=== PATIENT | male | born 1955 | race Two or more races ===

== ENCOUNTER 2017-01-16 11:24 | Inpatient (IN) | payer MEDICARE, MEDICAID ==
[2017-01-16] VITALS (15 sets, daily range): BP systolic 140–189; BP diastolic 74–99
[~2017-01-16] VITALS: Ht 165.1 cm; Wt 71.4 kg
[2017-01-16] MEDS: CARVEDILOL 12.5 MG TAB PO SCH (00:09)
[~2017-01-16 11:24] MED LIST: AGG25C PO; AMLO5TAB2 PO; CLON0.5T3 PO; EZET10TA2 PO; FLUO40CA PO; HYDR12.527 PO; INSUINJ37 SC; PHE100C; PHE100C PO; PIOG30TA7 PO; SIMV-8 PO
[2017-01-16] MEDS ORDERED: SODIUM CHLORIDE 0.9% 1,000 ML IVB ONE (12:29)
[2017-01-16 12:54] LABS: Basophils # (auto) 0 uL; Basophils % (auto) 0.1 % (0.0-2.0); CONDITION Y; DEFINITIVE SEE PRINTOUT; Eosinophils # (auto) 0 uL; Eosinophils % (auto) 0.2 % (0.0-7.0); Hematocrit 20.5 % (41.0-53.0); Lymphocytes # (auto) 1.6 uL; Lymphocytes % (auto) 13.4 % (10.0-50.0); Mean Corpuscular Hemoglobin 19.5 pg (28.0-32.0); Mean Corpuscular Hgb Conc. 32.3 g/dL (32.0-36.0); Mean Corpuscular Volume 60.5 fL (80.0-100.0); Mean Platelet Volume 7.8 fL (7.4-10.4); Neutrophils # (auto) 9.5 uL; Neutrophils % (auto) 78.3 % (37.0-80.0); Platelet Count (auto) 256 10^3/uL (140-450); Red Cell Distribution Width 19.2 % (11.6-16.0); White Blood Cell 12.2 10^3/uL (4.4-10.8)
[2017-01-16 13:10] LABS: Hemoglobin 6.6 g/dL (13.5-17.5)
[2017-01-16] MEDS ORDERED: MORPHINE SULF INJ 2 MG/ML SYRINGE 1ML IV ONE (13:15)
[2017-01-16] MEDS ORDERED: ONDANSETRON HCL 4 MG/2 ML VIAL IV ONE (13:15)
[2017-01-16 13:32] LABS: Albumin 2.3 g/dL (3.4-5.0); BUN/Creatinine Ratio 19.7; Bilirubin, Total 0.4 mg/dL (0.2-1.0); Magnesium 2.1 mg/dL (1.6-2.6); Potassium 3.7 mmol/L (3.5-5.1); Total Protein 6.2 g/dL (6.4-8.2)
[2017-01-16] MEDS ORDERED: cefTRIAXone 1GM/50ML D5W 50 ML IV ONE (14:00)
[2017-01-16 14:12] LABS: Urine Bilirubin Negative (Negative); Urine Blood 2+ /uL (Negative); Urine Color Yellow (Yellow); Urine Glucose Normal (Normal); Urine Ketone Negative (Negative); Urine Nitrite Negative (Negative); Urine RBC 332 /hpf (0 - 3); Urine Squamous Epithelial Cell FEW /hpf (<5); Urine Urobilinogen Normal (Negative); Urine pH 6.5 (5.0-8.0)
[2017-01-16 14:31] LABS: Microcytosis Marked
[2017-01-16 14:34] LABS: Anisocytosis Moderate; Hypochromia Moderate; Ovalocytes MODERATE; Platelet Estimate Adequate
[2017-01-16] MEDS ORDERED: DOCUSATE SOD 100 MG CAP PO PRN (15:30)
[2017-01-16] MEDS ORDERED: NITROGLYCERIN 0.4 MG SL TAB SL PRN (15:30)
[2017-01-16] MEDS ORDERED: MORPHINE SULFATE 4 MG/ML SYRG IV PRN (15:30)
[2017-01-16] MEDS ORDERED: PIOGLITAZONE HYDROCHLORIDE 30 MG TAB PO ONE (16:30)
[2017-01-16] MEDS ORDERED: amLODIPine BESYLATE 5 MG TAB PO ONE (16:30)
[2017-01-16] MEDS ORDERED: ASPIRIN-DIPYRIDAMOLE (25/200MG) CAPSULE PO ONE (16:30)
[2017-01-16] MEDS ORDERED: PHENYTOIN SODIUM 100 MG CAP PO ONE (16:30)
[2017-01-16] MEDS ORDERED: FAMOTIDINE 20 MG TAB PO ONE (16:30)
[2017-01-16] MEDS ORDERED: CAR125T PO (16:46)
[2017-01-16] MEDS ORDERED: LEVE500T22 PO (16:46)
[2017-01-16] MEDS ORDERED: ROSU1TAB6 PO (16:46)
[2017-01-16] MEDS ORDERED: FLUO20CA19 PO (16:46)
[2017-01-16] MEDS ORDERED: BACL10TA PO (16:46)
[2017-01-16] MEDS ORDERED: CLOP75TA28 PO (16:46)
[2017-01-16] MEDS ORDERED: PHEN100C70 PO (16:46)
[2017-01-16] MEDS ORDERED: LISI-646 PO (16:46)
[2017-01-16] MEDS ORDERED: TAMS0.4C36 PO (16:46)
[2017-01-16] MEDS ORDERED: FUROSEMIDE 20 MG/2 ML VIAL IV ONE (17:30)
[2017-01-16] MEDS ORDERED: CLOPIDOGREL BISULFATE 75 MG TAB PO ONE (18:15)
[2017-01-16] MEDS ORDERED: LISINOPRIL 20 MG TAB PO ONE (18:15)
[2017-01-16] MEDS ORDERED: CARVEDILOL 12.5 MG TAB PO ONE (18:15)
[2017-01-16] MEDS ORDERED: clonazePAM 0.5 MG TAB PO PRN (22:00)
[2017-01-16] MEDS ORDERED: PHENYTOIN SODIUM 100 MG CAP PO SCH (22:00)
[2017-01-16] MEDS: PHENYTOIN SODIUM 100 MG CAP PO SCH (22:41)
[2017-01-16] MEDS: FAMOTIDINE 20 MG TAB PO SCH (22:41)
[2017-01-17] MEDS: PHENYTOIN SODIUM 100 MG CAP PO SCH ×3 (06:09→21:56)
[2017-01-17 06:38] LABS: Albumin 1.9 g/dL (3.4-5.0); BUN/Creatinine Ratio 19.3; Bilirubin, Total 0.3 mg/dL (0.2-1.0); Calcium 7.8 mg/dL (8.5-10.1); Potassium 3.5 mmol/L (3.5-5.1); Total Protein 5.5 g/dL (6.4-8.2)
[2017-01-17 08:26] LABS: Basophils # (auto) 0 uL; Basophils % (auto) 0.5 % (0.0-2.0); Eosinophils # (auto) 0.1 uL; Eosinophils % (auto) 1.3 % (0.0-7.0); Hematocrit 28.7 % (41.0-53.0); Hemoglobin 9.3 g/dL (13.5-17.5); Lymphocytes # (auto) 1.5 uL; Lymphocytes % (auto) 17.8 % (10.0-50.0); Mean Corpuscular Hgb Conc. 32.5 g/dL (32.0-36.0); Mean Corpuscular Volume 70.8 fL (80.0-100.0); Mean Platelet Volume 8.4 fL (7.4-10.4); Monocytes # (auto) 1.1 uL; Monocytes % (auto) 13.1 % (0.0-12.0); Neutrophils # (auto) 5.5 uL; Platelet Count (auto) 230 10^3/uL (140-450); Red Cell Distribution Width 30.5 % (11.6-16.0); White Blood Cell 8.2 10^3/uL (4.4-10.8)
[2017-01-17 08:30] LABS: Platelet Estimate Adequate
[2017-01-17 08:31] LABS: Anisocytosis Marked; Microcytosis Marked; Neutrophils % (auto) 67.3 % (37.0-80.0); Ovalocytes FEW
[2017-01-17 08:33] LABS: Neutrophils % (auto) 74.1 % (37.0-80.0); White Blood Cell 8.9 10^3/uL (4.4-10.8)
[2017-01-17 08:34] LABS: Basophils # (auto) 0 uL; Basophils % (auto) 0.3 % (0.0-2.0); Eosinophils # (auto) 0.1 uL; Hematocrit 29.5 % (41.0-53.0); Hemoglobin 9.6 g/dL (13.5-17.5); Lymphocytes # (auto) 1.2 uL; Lymphocytes % (auto) 13.5 % (10.0-50.0); Mean Corpuscular Hgb Conc. 32.6 g/dL (32.0-36.0); Mean Corpuscular Volume 70.7 fL (80.0-100.0); Mean Platelet Volume 8.2 fL (7.4-10.4); Monocytes % (auto) 11.1 % (0.0-12.0); Neutrophils # (auto) 6.6 uL; Platelet Count (auto) 223 10^3/uL (140-450)
[2017-01-17 08:51] LABS: INR 1.07 (0.9-1.15); Partial Thromboplastin Time 27.1 sec (22.64-33.71); Prothrombin Time 11.7 sec (9.37-12.3)
[2017-01-17] MEDS ORDERED: amLODIPine BESYLATE 5 MG TAB PO SCH (10:00)
[2017-01-17] MEDS ORDERED: PIOGLITAZONE HYDROCHLORIDE 30 MG TAB PO SCH (10:00)
[2017-01-17] MEDS: CLOPIDOGREL BISULFATE 75 MG TAB PO SCH (10:00)
[2017-01-17] MEDS ORDERED: ASPIRIN-DIPYRIDAMOLE (25/200MG) CAPSULE PO SCH (10:00)
[2017-01-17] MEDS: FAMOTIDINE 20 MG TAB PO SCH ×2 (10:32→21:56)
[2017-01-17] MEDS: LISINOPRIL 20 MG TAB PO SCH (10:33)
[2017-01-17] MEDS: CARVEDILOL 12.5 MG TAB PO SCH ×2 (10:33→21:56)
[2017-01-17 12:30] VITALS: BP 184/86
[2017-01-17 13:00] VITALS: BP 184/86
[2017-01-17] MEDS: hydrALAZINE HCL 20 MG/ML VL IV PRN (14:58)
[2017-01-17 16:00] VITALS: BP 140/69
[2017-01-17] MEDS ORDERED: cloNIDine 0.2 mg/24hr 7DAY PATCH TD SCH (18:30)
[2017-01-17 20:00] VITALS: BP 157/74
[2017-01-17 23:42] VITALS: BP 155/81
[2017-01-18 04:00] VITALS: BP 187/93
[2017-01-18] MEDS: hydrALAZINE HCL 20 MG/ML VL IV PRN ×2 (04:15→12:08)
[2017-01-18] MEDS: PHENYTOIN SODIUM 100 MG CAP PO SCH ×3 (05:45→21:19)
[2017-01-18 08:00] VITALS: BP 172/90
[2017-01-18] MEDS: FAMOTIDINE 20 MG TAB PO SCH ×2 (09:40→21:19)
[2017-01-18] MEDS: LISINOPRIL 20 MG TAB PO SCH (09:40)
[2017-01-18] MEDS: CARVEDILOL 12.5 MG TAB PO SCH ×2 (09:41→21:19)
[2017-01-18] MEDS: CLOPIDOGREL BISULFATE 75 MG TAB PO SCH ×2 (09:45→21:19)
[2017-01-18] MEDS ORDERED: IODIXANOL 320MG/ML 100ML BTL IV ONE ×2 (10:20→11:02)
[2017-01-18] MEDS ORDERED: LIDOCAINE 2%HCL (LOCAL ANESTH.) INJ 20ML MDV ONE (10:20)
[2017-01-18] MEDS ORDERED: ANGIOMAX 250 MG VIAL IV ONE (10:37)
[2017-01-18] MEDS ORDERED: MIDAZOLAM HCL 1MG/1ML-2 ML VIAL ONE (10:37)
[2017-01-18] MEDS ORDERED: fentaNYL CITRATE 100 MCG/2 ML VL ONE (10:37)
[2017-01-18] MEDS ORDERED: SODIUM CHL 0.9% 0 ML ONE (10:37)
[2017-01-18] MEDS ORDERED: VERAPAMIL 2.5MG/ML INJ 2ML VIAL IV ONE (10:37)
[2017-01-18] MEDS ORDERED: EPTIFIBATIDE INJ (2MG/ML) 10ML VIAL IV ONE (10:38)
[2017-01-18] MEDS ORDERED: HEPARIN 1,000 UNITS/ml 1ML VIAL ONE (11:06)
[2017-01-18 12:59] VITALS: BP 134/71
[2017-01-18 16:00] VITALS: BP 153/85
[2017-01-18 20:00] VITALS: BP 145/84
[2017-01-18] MEDS: TEMAZEPAM 15 MG CAP PO PRN (21:20)
[2017-01-19] VITALS: BP 142/80
[2017-01-19 05:06] LABS: Basophils # (auto) 0 uL; Basophils % (auto) 0.3 % (0.0-2.0); CONDITION Y; DEFINITIVE SEE PRINTOUT; Eosinophils # (auto) 0.1 uL; Hematocrit 30.5 % (41.0-53.0); Hemoglobin 9.9 g/dL (13.5-17.5); Lymphocytes # (auto) 1.1 uL; Lymphocytes % (auto) 11.5 % (10.0-50.0); Mean Corpuscular Hemoglobin 22.8 pg (28.0-32.0); Mean Corpuscular Hgb Conc. 32.4 g/dL (32.0-36.0); Mean Corpuscular Volume 70.5 fL (80.0-100.0); Mean Platelet Volume 7.8 fL (7.4-10.4); Monocytes % (auto) 11.2 % (0.0-12.0); Neutrophils # (auto) 7.1 uL; Platelet Count (auto) 291 10^3/uL (140-450); SUSPECT SEE PRINTOUT; White Blood Cell 9.3 10^3/uL (4.4-10.8)
[2017-01-19] MEDS: PHENYTOIN SODIUM 100 MG CAP PO SCH ×3 (05:22→21:14)
[2017-01-19 05:27] LABS: Calcium 7.9 mg/dL (8.5-10.1); Potassium 3.2 mmol/L (3.5-5.1)
[2017-01-19 05:58] LABS: Red Cell Distribution Width 30.8 % (11.6-16.0)
[2017-01-19 07:12] LABS: Base Excess -1.1 mmol/L (-2.0-2.0); Blood COHb 0.1 % (0.5-1.5); Blood MetHb 0.5 % (0.0-1.5); HCO3 22.4 mmol/L (22-26.0); MODE ROOM AIR; O2Hb 93.4 % (94.0-97.0); PCO2 33.1 mmHg (35.0-45.0); PCO2(T) 33.1 mmHg (35.0-45.0); PO2 73.3 mmHg (80.0-100.0); PO2(T) 73.3 mmHg (80.0-100.0); Room 0265D; Sample Type Arterial; pH 7.449 (7.350-7.450)
[2017-01-19 08:00] VITALS: BP 180/87
[2017-01-19] MEDS: hydrALAZINE HCL 20 MG/ML VL IV PRN ×2 (08:39→15:48)
[2017-01-19] MEDS: CARVEDILOL 12.5 MG TAB PO SCH ×2 (10:44→21:14)
[2017-01-19] MEDS: LISINOPRIL 20 MG TAB PO SCH (10:45)
[2017-01-19] MEDS: FAMOTIDINE 20 MG TAB PO SCH ×2 (10:45→21:14)
[2017-01-19 12:00] VITALS: BP 164/86
[2017-01-19] MEDS ORDERED: POTASSIUM CHL 20 Meq TABLET PO ONE (13:00)
[2017-01-19 15:48] VITALS: BP 182/89
[2017-01-19] MEDS: ONDANSETRON HCL 4 MG/2 ML VIAL IV PRN (18:31)
[2017-01-19 20:00] VITALS: BP 146/80
[2017-01-19] MEDS: TEMAZEPAM 15 MG CAP PO PRN (21:14)
[2017-01-20] VITALS (8 sets, daily range): BP systolic 142–175; BP diastolic 72–89
[2017-01-20] MEDS: hydrALAZINE HCL 20 MG/ML VL IV PRN ×2 (04:28→15:52)
[2017-01-20] MEDS: PHENYTOIN SODIUM 100 MG CAP PO SCH ×3 (05:57→21:37)
[2017-01-20 06:19] LABS: Basophils # (auto) 0 uL; Basophils % (auto) 0.3 % (0.0-2.0); CONDITION Y; DEFINITIVE SEE PRINTOUT; Eosinophils # (auto) 0.1 uL; Eosinophils % (auto) 0.5 % (0.0-7.0); Hematocrit 32.2 % (41.0-53.0); Hemoglobin 10.5 g/dL (13.5-17.5); Lymphocytes # (auto) 1.6 uL; Lymphocytes % (auto) 14.2 % (10.0-50.0); Mean Corpuscular Hemoglobin 22.9 pg (28.0-32.0); Mean Corpuscular Hgb Conc. 32.5 g/dL (32.0-36.0); Mean Corpuscular Volume 70.4 fL (80.0-100.0); Mean Platelet Volume 7.8 fL (7.4-10.4); Monocytes # (auto) 1.4 uL; Monocytes % (auto) 12.7 % (0.0-12.0); Neutrophils # (auto) 8.1 uL; Neutrophils % (auto) 72.3 % (37.0-80.0); Platelet Count (auto) 314 10^3/uL (140-450); SUSPECT SEE PRINTOUT; White Blood Cell 11.3 10^3/uL (4.4-10.8)
[2017-01-20 06:23] LABS: Red Cell Distribution Width 30.7 % (11.6-16.0)
[2017-01-20 06:40] LABS: INR 1.06 (0.9-1.15); Partial Thromboplastin Time 30.4 sec (22.64-33.71); Prothrombin Time 11.6 sec (9.37-12.3)
[2017-01-20 06:49] LABS: Albumin 1.6 g/dL (3.4-5.0); BUN/Creatinine Ratio 16.3; Bilirubin, Total 0.7 mg/dL (0.2-1.0); Calcium 7.5 mg/dL (8.5-10.1); Potassium 3.5 mmol/L (3.5-5.1); Total Protein 5.4 g/dL (6.4-8.2)
[2017-01-20 07:31] LABS: Anisocytosis Slight; Hypochromia Slight; Platelet Estimate Adequate
[2017-01-20] MEDS: FAMOTIDINE 20 MG TAB PO SCH ×2 (09:22→21:38)
[2017-01-20] MEDS: LISINOPRIL 20 MG TAB PO SCH (09:23)
[2017-01-20] MEDS: CARVEDILOL 12.5 MG TAB PO SCH ×2 (09:24→21:38)
[2017-01-20] MEDS: ONDANSETRON HCL 4 MG/2 ML VIAL IV PRN (15:13)
[2017-01-20] MEDS: CLOPIDOGREL BISULFATE 75 MG TAB PO SCH (16:07)
[2017-01-20] MEDS: FLUCONAZOLE 100 MG TAB PO SCH (16:54)
[2017-01-20] MEDS ORDERED: DEXTROSE (50%) 50ML SYRG IV PRN (18:30)
[2017-01-20] MEDS: hydrALAZINE HCL 25 MG TAB PO SCH (21:38)
[2017-01-20] MEDS: InsuLIN REG 1unit/0.01ml Soln (100units/ml) SC SCH (21:39)
[2017-01-20] MEDS: ACCU-CHEK COMFORT CURVE STRIP VI SCH (21:39)
[2017-01-21] VITALS (7 sets, daily range): BP systolic 157–189; BP diastolic 73–92
[2017-01-21] MEDS: hydrALAZINE HCL 20 MG/ML VL IV PRN ×2 (04:13→08:45)
[2017-01-21] MEDS: PHENYTOIN SODIUM 100 MG CAP PO SCH ×3 (05:53→21:01)
[2017-01-21] MEDS: ACCU-CHEK COMFORT CURVE STRIP VI SCH ×4 (06:31→21:03)
[2017-01-21] MEDS: InsuLIN REG 1unit/0.01ml Soln (100units/ml) SC SCH ×4 (06:31→21:03)
[2017-01-21] MEDS: FLUCONAZOLE 100 MG TAB PO SCH (10:17)
[2017-01-21] MEDS: CLOPIDOGREL BISULFATE 75 MG TAB PO SCH (10:17)
[2017-01-21] MEDS: FAMOTIDINE 20 MG TAB PO SCH ×2 (10:18→21:03)
[2017-01-21] MEDS: LISINOPRIL 20 MG TAB PO SCH (10:18)
[2017-01-21] MEDS: hydrALAZINE HCL 25 MG TAB PO SCH ×3 (10:18→21:02)
[2017-01-21] MEDS: CARVEDILOL 12.5 MG TAB PO SCH ×2 (10:24→21:02)
[2017-01-21] MEDS: ASPirin 81 mg TAB PO SCH (13:56)
[2017-01-21] MEDS: ATORVASTATIN 20 MG TAB PO SCH (21:02)
[2017-01-21] MEDS: LEVETIRACETAM 500 MG TAB PO SCH (21:03)
[2017-01-22] MEDS: LEVETIRACETAM 500 MG TAB PO SCH ×2 (05:06→21:10)
[2017-01-22] MEDS: hydrALAZINE HCL 25 MG TAB PO SCH ×3 (05:07→21:09)
[2017-01-22] MEDS: ACCU-CHEK COMFORT CURVE STRIP VI SCH ×4 (05:07→21:11)
[2017-01-22] MEDS: PHENYTOIN SODIUM 100 MG CAP PO SCH ×3 (05:08→21:10)
[2017-01-22] MEDS: InsuLIN REG 1unit/0.01ml Soln (100units/ml) SC SCH ×4 (05:11→23:19)
[2017-01-22 05:38] VITALS: BP 159/74
[2017-01-22] MEDS: ASPirin 81 mg TAB PO SCH (08:58)
[2017-01-22] MEDS: FLUCONAZOLE 100 MG TAB PO SCH (08:59)
[2017-01-22] MEDS: CARVEDILOL 12.5 MG TAB PO SCH ×2 (08:59→21:10)
[2017-01-22] MEDS: FAMOTIDINE 20 MG TAB PO SCH ×2 (08:59→21:11)
[2017-01-22] MEDS: CLOPIDOGREL BISULFATE 75 MG TAB PO SCH (08:59)
[2017-01-22] MEDS: LISINOPRIL 20 MG TAB PO SCH (09:00)
[2017-01-22 09:30] VITALS: BP 156/88
[2017-01-22 12:42] VITALS: BP 136/84
[2017-01-22 16:36] VITALS: BP 168/87
[2017-01-22] MEDS: ATORVASTATIN 20 MG TAB PO SCH (21:10)
[2017-01-22 21:30] VITALS: BP 160/90
[2017-01-23 05:00] VITALS: BP 165/79
[2017-01-23] MEDS: hydrALAZINE HCL 25 MG TAB PO SCH ×2 (06:30→15:45)
[2017-01-23] MEDS: PHENYTOIN SODIUM 100 MG CAP PO SCH ×2 (06:30→15:46)
[2017-01-23] MEDS: ACCU-CHEK COMFORT CURVE STRIP VI SCH ×2 (06:30→11:39)
[2017-01-23] MEDS: InsuLIN REG 1unit/0.01ml Soln (100units/ml) SC SCH ×2 (06:30→11:39)
[2017-01-23] MEDS: hydrALAZINE HCL 20 MG/ML VL IV PRN (08:25)
[2017-01-23] MEDS: CLOPIDOGREL BISULFATE 75 MG TAB PO SCH (08:44)
[2017-01-23] MEDS: LISINOPRIL 20 MG TAB PO SCH (08:45)
[2017-01-23] MEDS: CARVEDILOL 12.5 MG TAB PO SCH (08:46)
[2017-01-23] MEDS: ASPirin 81 mg TAB PO SCH (08:46)
[2017-01-23] MEDS: FLUCONAZOLE 100 MG TAB PO SCH (08:46)
[2017-01-23] MEDS: FAMOTIDINE 20 MG TAB PO SCH (08:46)
[2017-01-23] MEDS: LEVETIRACETAM 500 MG TAB PO SCH (08:48)
[2017-01-23 09:00] VITALS: BP 184/89
[2017-01-23 13:00] VITALS: BP 156/75
[2017-01-23 16:56] VITALS: BP 159/84
== END 2017-01-23 17:53 | disposition short-term general hospital (02) | DRG 280 ==
LOC: EDBD 11:24 → ER 11:24 → TELE 11:25 → DOU IN ICU 01-17 12:20 → TELE-CENTR 01-20 18:04
PROVIDERS: ADMIT Internal Medicine; ATTEND Internal Medicine
PROC: 30233N1 Transfusion of Nonautologous Red Blood Cells into Peripheral Vein, Percutaneous Approach (ICD-10-PCS; 2017-01-16)
PROC: 4A023N7 Measurement of Cardiac Sampling and Pressure, Left Heart, Percutaneous Approach (ICD-10-PCS; principal; 2017-01-18)
PROC: B2111ZZ Fluoroscopy of Multiple Coronary Arteries using Low Osmolar Contrast (ICD-10-PCS; 2017-01-18)
PROC: B2131ZZ Fluoroscopy of Multiple Coronary Artery Bypass Grafts using Low Osmolar Contrast (ICD-10-PCS; 2017-01-18)
DX: I21.4 Non-ST elevation (NSTEMI) myocardial infarction (principal); E43 Unspecified severe protein-calorie malnutrition; I69.354 Hemiplegia and hemiparesis following cerebral infarction affecting left non-dominant side; N17.9 Acute kidney failure, unspecified; N39.0 Urinary tract infection, site not specified; D64.9 Anemia, unspecified; I12.9 Hypertensive chronic kidney disease with stage 1 through stage 4 chronic kidney disease, or unspecified chronic kidney disease; E11.22 Type 2 diabetes mellitus with diabetic chronic kidney disease; N18.3 Chronic kidney disease, stage 3 (moderate)
CPT/HCPCS: 36415; 36430; 36600; 51702; 70450; 71010; 74176; 80048; 80053; 81001; 82805; 82962; 83605; 83735; 84484; 85025; 85610; 85730; 86850; 86900; 86901; 86920; 87040; 87081; 87086; 93005; 93306; 93886; 96361; 96365; 96375; 99152; 99291; J0696; J1815; J2250; J2405; Q9967

== ENCOUNTER 2021-07-21 19:45 | Inpatient (IN) | payer MEDICARE, MEDICAID ==
[~2021-07-21] VITALS: Ht 167.6 cm; Wt 116.0 kg
[~2021-07-21 19:45] MED LIST changes: +AMLO-489 PO; -AMLO5TAB2 PO; +BACL10TA PO; +CAR125T PO; +CLON0.5T10 PO; -CLON0.5T3 PO; +CLOP75TA28 PO; -EZET10TA2 PO; +EZET10TA22 PO; +FLUO20CA19 PO; -HYDR12.527 PO; +HYDR12.55 PO; +LEVE500T32 PO; +LISI20TA28 PO; +PHEN100C PO; +PIOG30TA28 PO; -PIOG30TA7 PO; +ROSU1TAB14 PO; +TAMS0.4C36 PO
[2021-07-21 20:47] LABS: Hemoglobin 7.6 g/dL (13.5-17.5); Mean Corpuscular Hemoglobin 17.7 pg (28.0-32.0); Red Blood Cells 4.28 10^6/uL (4.5-5.90)
[2021-07-21 20:49] LABS: Hematocrit 24.2 % (41.0-53.0); Mean Corpuscular Hgb Conc. 31.2 g/dL (32.0-36.0); Mean Corpuscular Volume 56.6 fL (80.0-100.0); Red Cell Distribution Width 17.6 % (11.8-14.3)
[2021-07-21 20:59] LABS: Basophils % (manual) 0 (0.0-2.0); Blast Cells 0; Eosinophils % (manual) 0 (0-7); Monocytes % (manual) 0 (0-12); Myelocytes % 0; Promyelocytes % 0; Reactive Lymphocytes 0
[2021-07-21 21:28] LABS: Band Neutrophils % (manual) 3; Lymphocytes % (manual) 9 (10.0-50.0); Metamyelocytes % 1
[2021-07-21 22:19] LABS: INR 1.08 (0.9-1.15); Partial Thromboplastin Time 25.2 sec (23.6-33.0)
[2021-07-21 22:23] LABS: Albumin 2.6 g/dL (3.4-5.0); Calcium 8.3 mg/dL (8.5-10.1); Potassium 5.4 mmol/L (3.5-5.1)
[2021-07-21 22:29] LABS: Bilirubin, Total 0.3 mg/dL (0.2-1.0)
[2021-07-21 22:34] LABS: BUN/Creatinine Ratio 18.4
[2021-07-21 23:21] LABS: Urine Amorphous Crystal FEW /hpf (None Seen); Urine Bacteria FEW /hpf (None Seen); Urine Blood 2+ /uL (Negative); Urine Specific Gravity 1.013 (1.001-1.035); Urine WBC 4 /hpf (0 - 3)
[2021-07-22] MEDS ORDERED: ACETAMINOPHEN 325 MG TAB PO PRN (01:30)
[2021-07-22] MEDS ORDERED: DOCUSATE SOD 100 MG CAP PO PRN (01:30)
[2021-07-22] MEDS ORDERED: MORPHINE SULFATE INJECTION 2 MG/ML SYRG IV PRN (01:30)
[2021-07-22] MEDS ORDERED: DEXTROSE (50%) 50ML SYRG IV PRN (01:30)
[2021-07-22] MEDS ORDERED: HYDROcodone-ACET 5/325MG TAB PO PRN (01:30)
[2021-07-22] MEDS ORDERED: NITROGLYCERIN 0.4 MG SL TAB SL PRN (01:30)
[2021-07-22] MEDS ORDERED: ONDANSETRON HCL 4 MG/2 ML VIAL IV PRN (01:30)
[2021-07-22] MEDS: ACCU-CHEK COMFORT CURVE STRIP VI SCH ×5 (04:14→20:00)
[2021-07-22] MEDS: InsuLIN REG 1unit/0.01ml Soln (100units/ml) SC SCH ×5 (04:18→20:00)
[2021-07-22] MEDS: MULTIPLE VITAMIN TAB PO SCH ×2 (10:32→10:54)
[2021-07-22] MEDS: ZINC SULFATE 220mg CAP or TAB PO SCH ×2 (10:32→10:54)
[2021-07-22] MEDS: ASCORBIC ACID 500 MG TAB PO SCH ×2 (10:32→10:54)
[2021-07-22] MEDS: ENOXAPARIN SOD 30 MG/0.3 ML SYRINGE SC SCH ×2 (10:33→10:54)
[2021-07-22 11:41] LABS: BUN/Creatinine Ratio 20.3; Calcium 8.7 mg/dL (8.5-10.1); Potassium 4.7 mmol/L (3.5-5.1)
[2021-07-22] MEDS: SODIUM BICARBONATE 50ML VIAL 50 ML in SOD CHL 0.45% 1,000 ML IV SCH ×2 (13:09→13:17)
[2021-07-22] MEDS: SODIUM BICARBONATE 650 MG TAB PO SCH ×2 (13:10→13:17)
[2021-07-22 19:45] VITALS: BP 145/78
[2021-07-22 20:00] VITALS: BP 147/102
[2021-07-22] MEDS: MORPHINE SULFATE 4 MG/ML SYR/VIAL IV PRN (21:30)
[2021-07-22 22:00] VITALS: BP 145/78
[2021-07-23] VITALS (7 sets, daily range): BP systolic 140–164; BP diastolic 70–89
[2021-07-23] MEDS: ACCU-CHEK COMFORT CURVE STRIP VI SCH ×6 (04:00→20:00)
[2021-07-23] MEDS: InsuLIN REG 1unit/0.01ml Soln (100units/ml) SC SCH ×6 (04:00→20:00)
[2021-07-23 06:00] LABS: Red Blood Cells 3.86 10^6/uL (4.5-5.90)
[2021-07-23] MEDS: SODIUM BICARBONATE 650 MG TAB PO SCH ×3 (06:00→22:00)
[2021-07-23 06:02] LABS: Hematocrit 21.3 % (41.0-53.0); Mean Corpuscular Hemoglobin 18.1 pg (28.0-32.0); Mean Corpuscular Hgb Conc. 32.9 g/dL (32.0-36.0); Mean Corpuscular Volume 55.2 fL (80.0-100.0); Red Cell Distribution Width 17.3 % (11.8-14.3)
[2021-07-23] MEDS: MORPHINE SULFATE 4 MG/ML SYR/VIAL IV PRN ×3 (06:19→21:05)
[2021-07-23 06:26] LABS: Band Neutrophils % (manual) 0; Basophils % (manual) 0 (0.0-2.0); Blast Cells 0; Eosinophils % (manual) 0 (0-7); Metamyelocytes % 0; Myelocytes % 0; Promyelocytes % 0; Reactive Lymphocytes 0
[2021-07-23 06:36] LABS: Albumin 2.4 g/dL (3.4-5.0); BUN/Creatinine Ratio 21.1; Calcium 8.4 mg/dL (8.5-10.1)
[2021-07-23 06:39] LABS: Bilirubin, Total 0.3 mg/dL (0.2-1.0); Total Protein 5.4 g/dL (6.4-8.2)
[2021-07-23] MEDS ORDERED: AMLO-489 PO (08:06)
[2021-07-23] MEDS ORDERED: INSLANTI SC (08:06)
[2021-07-23] MEDS ORDERED: FOLI1TAB6 PO (08:06)
[2021-07-23] MEDS ORDERED: LEVE500T3 PO (08:06)
[2021-07-23] MEDS ORDERED: ATO40T PO (08:06)
[2021-07-23] MEDS ORDERED: FERR-20 PO (08:06)
[2021-07-23] MEDS ORDERED: CLOP75TA28 PO (08:06)
[2021-07-23] MEDS ORDERED: HYDR-4296 PO (08:06)
[2021-07-23] MEDS ORDERED: INSLISPI SC (08:06)
[2021-07-23] MEDS ORDERED: BACL20TA PO (08:06)
[2021-07-23] MEDS ORDERED: CHOL20009 PO (08:06)
[2021-07-23] MEDS ORDERED: CARV25TA55 PO (08:06)
[2021-07-23] MEDS ORDERED: RIVA10TA PO (08:06)
[2021-07-23] MEDS ORDERED: FUR20T PO (08:06)
[2021-07-23 08:37] LABS: Lymphocytes % (manual) 10 (10.0-50.0); Monocytes % (manual) 3 (0-12)
[2021-07-23] MEDS: ASCORBIC ACID 500 MG TAB PO SCH ×2 (11:06→22:00)
[2021-07-23] MEDS: ZINC SULFATE 220mg CAP or TAB PO SCH (11:07)
[2021-07-23] MEDS: MULTIPLE VITAMIN TAB PO SCH (11:07)
[2021-07-23] MEDS: ENOXAPARIN SOD 30 MG/0.3 ML SYRINGE SC SCH (11:07)
[2021-07-23] MEDS: SODIUM BICARBONATE 50ML VIAL 50 ML in SOD CHL 0.45% 1,000 ML IV SCH (16:52)
[2021-07-23] MEDS ORDERED: hydrALAZINE HCL 20 MG/ML VL IV PRN (18:45)
[2021-07-24] VITALS (7 sets, daily range): BP systolic 156–180; BP diastolic 82–89
[2021-07-24] MEDS ORDERED: LABETALOL HCL 5 MG/ML 4ML SYRINGE IV ONE (03:15)
[2021-07-24] MEDS: InsuLIN REG 1unit/0.01ml Soln (100units/ml) SC SCH ×6 (04:00→20:18)
[2021-07-24] MEDS: ACCU-CHEK COMFORT CURVE STRIP VI SCH ×7 (04:03→23:56)
[2021-07-24] MEDS: MORPHINE SULFATE 4 MG/ML SYR/VIAL IV PRN ×3 (04:14→15:00)
[2021-07-24] MEDS: SODIUM BICARBONATE 650 MG TAB PO SCH ×3 (05:43→22:06)
[2021-07-24 06:11] LABS: BUN/Creatinine Ratio 21.6; Calcium 8.2 mg/dL (8.5-10.1); Potassium 4.7 mmol/L (3.5-5.1)
[2021-07-24] MEDS: SODIUM BICARBONATE 50ML VIAL 50 ML in SOD CHL 0.45% 1,000 ML IV SCH (09:30)
[2021-07-24] MEDS: ASCORBIC ACID 500 MG TAB PO SCH ×2 (10:00→22:06)
[2021-07-24] MEDS: LABETALOL HCL 5 MG/ML 4ML SYRINGE IV PRN (23:20)
[2021-07-25] MEDS: InsuLIN REG 1unit/0.01ml Soln (100units/ml) SC SCH ×7 (00:04→23:31)
[2021-07-25] MEDS: SODIUM BICARBONATE 50ML VIAL 50 ML in SOD CHL 0.45% 1,000 ML IV SCH ×2 (01:05→15:30)
[2021-07-25] MEDS: ACCU-CHEK COMFORT CURVE STRIP VI SCH ×5 (04:01→20:05)
[2021-07-25 05:00] VITALS: BP 181/85
[2021-07-25] MEDS: LABETALOL HCL 5 MG/ML 4ML SYRINGE IV PRN ×3 (05:06→17:55)
[2021-07-25] MEDS: SODIUM BICARBONATE 650 MG TAB PO SCH ×3 (05:57→21:44)
[2021-07-25] MEDS: MORPHINE SULFATE 4 MG/ML SYR/VIAL IV PRN ×2 (06:15→11:05)
[2021-07-25 09:00] VITALS: BP 176/82
[2021-07-25] MEDS: ZINC SULFATE 220mg CAP or TAB PO SCH (09:53)
[2021-07-25] MEDS: MULTIPLE VITAMIN TAB PO SCH (09:54)
[2021-07-25] MEDS: ENOXAPARIN SOD 30 MG/0.3 ML SYRINGE SC SCH (09:54)
[2021-07-25] MEDS: ASCORBIC ACID 500 MG TAB PO SCH ×2 (09:54→21:45)
[2021-07-25 13:00] VITALS: BP 167/88
[2021-07-25] MEDS: CARVEDILOL 3.125 MG TAB PO SCH ×2 (13:32→21:45)
[2021-07-25] MEDS: hydrALAZINE HCL 25 MG TAB PO SCH ×2 (13:32→21:44)
[2021-07-25] MEDS: CLOPIDOGREL BISULFATE 75 MG TAB PO SCH (13:32)
[2021-07-25 17:00] VITALS: BP 163/76
[2021-07-25] MEDS: RIVAROXABAN 10 MG TAB PO SCH (21:45)
[2021-07-25 22:00] VITALS: BP 194/89
[2021-07-26] MEDS: ACCU-CHEK COMFORT CURVE STRIP VI SCH ×6 (00:10→20:44)
[2021-07-26] MEDS: InsuLIN REG 1unit/0.01ml Soln (100units/ml) SC SCH ×5 (03:23→20:44)
[2021-07-26] MEDS: hydrALAZINE HCL 25 MG TAB PO SCH ×4 (05:36→20:56)
[2021-07-26] MEDS: SODIUM BICARBONATE 50ML VIAL 50 ML in SOD CHL 0.45% 1,000 ML IV SCH ×2 (06:16→21:06)
[2021-07-26] MEDS: SODIUM BICARBONATE 650 MG TAB PO SCH ×3 (06:16→20:57)
[2021-07-26 06:49] LABS: Calcium 7.8 mg/dL (8.5-10.1); Magnesium 2.4 mg/dL (1.6-2.6); Phosphorus 5.6 mg/dL (2.5-4.90); Potassium 4.3 mmol/L (3.5-5.1)
[2021-07-26 08:45] VITALS: BP 178/74
[2021-07-26] MEDS: ZINC SULFATE 220mg CAP or TAB PO SCH (09:36)
[2021-07-26] MEDS: ASCORBIC ACID 500 MG TAB PO SCH ×2 (09:36→20:56)
[2021-07-26] MEDS: MULTIPLE VITAMIN TAB PO SCH (09:37)
[2021-07-26] MEDS: RIVAROXABAN 10 MG TAB PO SCH ×2 (09:38→20:57)
[2021-07-26] MEDS: CLOPIDOGREL BISULFATE 75 MG TAB PO SCH (09:38)
[2021-07-26] MEDS: CARVEDILOL 3.125 MG TAB PO SCH ×2 (09:38→20:57)
[2021-07-26 12:48] VITALS: BP 152/77
[2021-07-26 17:00] VITALS: BP 145/69
[2021-07-26 22:00] VITALS: BP 150/87
[2021-07-27] MEDS: ACCU-CHEK COMFORT CURVE STRIP VI SCH ×6 (00:03→21:00)
[2021-07-27] MEDS: LABETALOL HCL 5 MG/ML 4ML SYRINGE IV PRN ×3 (00:04→11:55)
[2021-07-27] MEDS: InsuLIN REG 1unit/0.01ml Soln (100units/ml) SC SCH ×6 (04:00→20:00)
[2021-07-27 05:07] VITALS: BP 164/71
[2021-07-27] MEDS: hydrALAZINE HCL 25 MG TAB PO SCH ×3 (05:43→21:40)
[2021-07-27] MEDS: SODIUM BICARBONATE 650 MG TAB PO SCH ×3 (05:44→21:40)
[2021-07-27] MEDS: ZINC SULFATE 220mg CAP or TAB PO SCH (08:17)
[2021-07-27] MEDS: CARVEDILOL 3.125 MG TAB PO SCH ×2 (08:17→21:40)
[2021-07-27] MEDS: MULTIPLE VITAMIN TAB PO SCH (08:17)
[2021-07-27] MEDS: RIVAROXABAN 10 MG TAB PO SCH (08:18)
[2021-07-27] MEDS: ASCORBIC ACID 500 MG TAB PO SCH ×2 (08:18→21:41)
[2021-07-27] MEDS: CLOPIDOGREL BISULFATE 75 MG TAB PO SCH (08:18)
[2021-07-27] MEDS: SODIUM BICARBONATE 50ML VIAL 50 ML in SOD CHL 0.45% 1,000 ML IV SCH (11:54)
[2021-07-27 13:00] VITALS: BP 178/65
[2021-07-27 14:10] VITALS: BP 142/74
[2021-07-27 16:43] LABS: Eosinophils # (auto) 0 10 ^3/uL (0-0.8); Lymphocytes # (auto) 0.8 10 ^3/uL (0.4-5.4)
[2021-07-27 16:49] LABS: Basophils # (auto) 0.1 10 ^3/uL (0-0.2); Basophils % (auto) 0.7 % (0.0-2.0); Eosinophils % (auto) 0.3 % (0.0-7.0); Hematocrit 19.4 % (41.0-53.0); Lymphocytes % (auto) 8.9 % (10.0-50.0); Mean Corpuscular Hemoglobin 18.1 pg (28.0-32.0); Mean Corpuscular Hgb Conc. 32.6 g/dL (32.0-36.0); Mean Corpuscular Volume 55.6 fL (80.0-100.0); Monocytes # (auto) 1.3 10 ^3/uL (0-1.3); Monocytes % (auto) 13.7 % (0.0-12.0); Neutrophils # (auto) 7.2 10 ^3/uL (1.6-8.6); Neutrophils % (auto) 76.4 % (37.0-80.0); Red Blood Cells 3.49 10^6/uL (4.5-5.90); Red Cell Distribution Width 17.6 % (11.8-14.3); White Blood Cell 9.4 10^3/uL (4.4-10.8)
[2021-07-27 16:54] LABS: Hemoglobin 6.3 g/dL (13.5-17.5)
[2021-07-27 17:00] VITALS: BP 172/65
[2021-07-27 17:01] LABS: BUN/Creatinine Ratio 21.1; Calcium 7.4 mg/dL (8.5-10.1); Magnesium 2.9 mg/dL (1.6-2.6); Potassium 4.4 mmol/L (3.5-5.1)
[2021-07-27 17:11] LABS: CRP High Sensitivity 12.7 mg/dL (< 0.3)
[2021-07-27] MEDS: FUROSEMIDE 20 MG/2 ML VIAL IV SCH (17:27)
[2021-07-27 22:00] VITALS: BP 154/79
[2021-07-28] VITALS (9 sets, daily range): BP systolic 149–165; BP diastolic 67–87
[2021-07-28] MEDS: ACCU-CHEK COMFORT CURVE STRIP VI SCH ×6 (00:09→21:49)
[2021-07-28] MEDS: InsuLIN REG 1unit/0.01ml Soln (100units/ml) SC SCH ×6 (01:05→21:53)
[2021-07-28] MEDS: hydrALAZINE HCL 25 MG TAB PO SCH ×3 (06:20→21:50)
[2021-07-28] MEDS: SODIUM BICARBONATE 650 MG TAB PO SCH ×3 (06:20→21:49)
[2021-07-28] MEDS: FUROSEMIDE 20 MG/2 ML VIAL IV SCH ×2 (06:31→18:18)
[2021-07-28] MEDS: PANTOPRAZOLE 40 MG/10 ML VIAL INJ IV SCH (11:08)
[2021-07-28] MEDS: ZINC SULFATE 220mg CAP or TAB PO SCH (11:08)
[2021-07-28] MEDS: MULTIPLE VITAMIN TAB PO SCH (11:08)
[2021-07-28] MEDS: CARVEDILOL 3.125 MG TAB PO SCH ×2 (11:09→21:50)
[2021-07-28] MEDS: ASCORBIC ACID 500 MG TAB PO SCH ×2 (11:09→21:50)
[2021-07-28] MEDS: LABETALOL HCL 5 MG/ML 4ML SYRINGE IV PRN (18:19)
[2021-07-29] MEDS: InsuLIN REG 1unit/0.01ml Soln (100units/ml) SC SCH ×6 (04:00→19:42)
[2021-07-29 05:00] VITALS: BP 148/89
[2021-07-29] MEDS: FUROSEMIDE 20 MG/2 ML VIAL IV SCH ×2 (05:04→17:45)
[2021-07-29] MEDS: ACCU-CHEK COMFORT CURVE STRIP VI SCH ×6 (05:04→19:43)
[2021-07-29] MEDS: hydrALAZINE HCL 25 MG TAB PO SCH ×3 (05:05→21:46)
[2021-07-29] MEDS: SODIUM BICARBONATE 650 MG TAB PO SCH ×3 (05:16→21:45)
[2021-07-29 08:00] VITALS: BP 148/89
[2021-07-29 09:00] VITALS: BP 146/86
[2021-07-29] MEDS: ZINC SULFATE 220mg CAP or TAB PO SCH (09:23)
[2021-07-29] MEDS: PANTOPRAZOLE 40 MG/10 ML VIAL INJ IV SCH (09:23)
[2021-07-29] MEDS: CARVEDILOL 3.125 MG TAB PO SCH ×2 (09:23→21:46)
[2021-07-29] MEDS: MULTIPLE VITAMIN TAB PO SCH (09:24)
[2021-07-29] MEDS: ASCORBIC ACID 500 MG TAB PO SCH ×2 (09:24→21:47)
[2021-07-29 10:45] LABS: Neutrophils % (auto) 76.8 % (37.0-80.0); White Blood Cell 8.7 10^3/uL (4.4-10.8)
[2021-07-29 10:49] LABS: Basophils # (auto) 0.1 10 ^3/uL (0-0.2); Basophils % (auto) 0.7 % (0.0-2.0); Eosinophils # (auto) 0.1 10 ^3/uL (0-0.8); Eosinophils % (auto) 0.7 % (0.0-7.0); Hematocrit 27.6 % (41.0-53.0); Hemoglobin 9.1 g/dL (13.5-17.5); Lymphocytes # (auto) 0.9 10 ^3/uL (0.4-5.4); Lymphocytes % (auto) 10.5 % (10.0-50.0); Mean Corpuscular Hgb Conc. 33.1 g/dL (32.0-36.0); Mean Corpuscular Volume 60.4 fL (80.0-100.0); Monocytes % (auto) 11.3 % (0.0-12.0); Neutrophils # (auto) 6.6 10 ^3/uL (1.6-8.6); Red Blood Cells 4.57 10^6/uL (4.5-5.90)
[2021-07-29 13:00] VITALS: BP 153/74
[2021-07-29 17:00] VITALS: BP 149/77
[2021-07-29 22:00] VITALS: BP 152/78
[2021-07-30] MEDS: InsuLIN REG 1unit/0.01ml Soln (100units/ml) SC SCH ×6 (04:00→19:56)
[2021-07-30] MEDS: ACCU-CHEK COMFORT CURVE STRIP VI SCH ×6 (04:00→19:57)
[2021-07-30 05:00] VITALS: BP 144/75
[2021-07-30] MEDS: FUROSEMIDE 20 MG/2 ML VIAL IV SCH ×2 (06:33→17:57)
[2021-07-30] MEDS: SODIUM BICARBONATE 650 MG TAB PO SCH ×3 (06:33→21:46)
[2021-07-30] MEDS: hydrALAZINE HCL 25 MG TAB PO SCH ×3 (06:34→21:47)
[2021-07-30 08:00] VITALS: BP 144/75
[2021-07-30 08:30] VITALS: BP 145/65
[2021-07-30 09:16] LABS: Basophils # (auto) 0 10 ^3/uL (0-0.2); Hemoglobin 9.3 g/dL (13.5-17.5)
[2021-07-30] MEDS: ZINC SULFATE 220mg CAP or TAB PO SCH (09:17)
[2021-07-30] MEDS: PANTOPRAZOLE 40 MG/10 ML VIAL INJ IV SCH (09:17)
[2021-07-30] MEDS: MULTIPLE VITAMIN TAB PO SCH (09:17)
[2021-07-30] MEDS: CARVEDILOL 3.125 MG TAB PO SCH ×2 (09:17→21:47)
[2021-07-30 09:18] LABS: Basophils % (auto) 0.2 % (0.0-2.0); Eosinophils # (auto) 0.1 10 ^3/uL (0-0.8); Eosinophils % (auto) 0.6 % (0.0-7.0); Hematocrit 29.3 % (41.0-53.0); Lymphocytes # (auto) 1.1 10 ^3/uL (0.4-5.4); Mean Corpuscular Hgb Conc. 31.8 g/dL (32.0-36.0); Monocytes # (auto) 0.8 10 ^3/uL (0-1.3); Monocytes % (auto) 8.7 % (0.0-12.0); Neutrophils # (auto) 7.3 10 ^3/uL (1.6-8.6); Neutrophils % (auto) 78.5 % (37.0-80.0); Nucleated Red Blood Cells % 0.1 %; Red Blood Cells 4.76 10^6/uL (4.5-5.90); White Blood Cell 9.4 10^3/uL (4.4-10.8)
[2021-07-30 09:20] LABS: BUN/Creatinine Ratio 17.9; Calcium 7.6 mg/dL (8.5-10.1); Mean Corpuscular Volume 61.5 fL (80.0-100.0); Potassium 3.7 mmol/L (3.5-5.1)
[2021-07-30 09:21] LABS: Mean Corpuscular Hemoglobin 19.5 pg (28.0-32.0); Red Cell Distribution Width 24.2 % (11.8-14.3)
[2021-07-30] MEDS: ASCORBIC ACID 500 MG TAB PO SCH ×2 (09:22→21:48)
[2021-07-30 12:30] VITALS: BP 157/68
[2021-07-30 17:00] VITALS: BP 165/93
[2021-07-30 21:00] VITALS: BP 158/70
[2021-07-31] MEDS: ACCU-CHEK COMFORT CURVE STRIP VI SCH ×6 (04:00→20:57)
[2021-07-31] MEDS: InsuLIN REG 1unit/0.01ml Soln (100units/ml) SC SCH ×6 (04:00→20:00)
[2021-07-31 05:11] VITALS: BP 146/68
[2021-07-31] MEDS: FUROSEMIDE 20 MG/2 ML VIAL IV SCH ×2 (06:15→17:26)
[2021-07-31] MEDS: hydrALAZINE HCL 25 MG TAB PO SCH ×3 (06:16→22:00)
[2021-07-31] MEDS: SODIUM BICARBONATE 650 MG TAB PO SCH ×3 (06:16→22:00)
[2021-07-31 09:00] VITALS: BP 131/75
[2021-07-31] MEDS: PANTOPRAZOLE 40 MG/10 ML VIAL INJ IV SCH (12:33)
[2021-07-31] MEDS: CARVEDILOL 3.125 MG TAB PO SCH ×2 (12:34→22:01)
[2021-07-31] MEDS: ZINC SULFATE 220mg CAP or TAB PO SCH (12:34)
[2021-07-31] MEDS: CLOPIDOGREL BISULFATE 75 MG TAB PO SCH (12:35)
[2021-07-31] MEDS: MULTIPLE VITAMIN TAB PO SCH (12:35)
[2021-07-31] MEDS: ASCORBIC ACID 500 MG TAB PO SCH ×2 (12:35→22:01)
[2021-07-31 13:00] VITALS: BP 137/74
[2021-07-31 17:00] VITALS: BP 124/85
[2021-07-31 22:00] VITALS: BP 126/74
[2021-08-01] MEDS: ACCU-CHEK COMFORT CURVE STRIP VI SCH ×6 (00:34→21:03)
[2021-08-01] MEDS: InsuLIN REG 1unit/0.01ml Soln (100units/ml) SC SCH ×6 (00:35→21:10)
[2021-08-01 05:00] VITALS: BP 154/76
[2021-08-01] MEDS: SODIUM BICARBONATE 650 MG TAB PO SCH ×3 (05:47→21:13)
[2021-08-01] MEDS: FUROSEMIDE 20 MG/2 ML VIAL IV SCH ×2 (05:47→18:40)
[2021-08-01] MEDS: hydrALAZINE HCL 25 MG TAB PO SCH ×3 (05:47→21:13)
[2021-08-01 09:00] VITALS: BP 138/77
[2021-08-01] MEDS: PANTOPRAZOLE 40 MG/10 ML VIAL INJ IV SCH (12:21)
[2021-08-01] MEDS: ZINC SULFATE 220mg CAP or TAB PO SCH (12:21)
[2021-08-01] MEDS: MULTIPLE VITAMIN TAB PO SCH (12:22)
[2021-08-01] MEDS: CARVEDILOL 3.125 MG TAB PO SCH ×2 (12:22→21:14)
[2021-08-01] MEDS: CLOPIDOGREL BISULFATE 75 MG TAB PO SCH (12:22)
[2021-08-01] MEDS: ASCORBIC ACID 500 MG TAB PO SCH ×2 (12:22→21:14)
[2021-08-01 13:00] VITALS: BP 138/72
[2021-08-01 17:00] VITALS: BP 134/75
[2021-08-01 21:56] VITALS: BP 143/64
[2021-08-02] MEDS: ACCU-CHEK COMFORT CURVE STRIP VI SCH ×2 (00:54→05:31)
[2021-08-02] MEDS: InsuLIN REG 1unit/0.01ml Soln (100units/ml) SC SCH ×2 (04:00)
[2021-08-02 05:00] VITALS: BP 122/66
[2021-08-02] MEDS: hydrALAZINE HCL 25 MG TAB PO SCH (05:32)
[2021-08-02] MEDS: SODIUM BICARBONATE 650 MG TAB PO SCH (05:32)
[2021-08-02] MEDS: FUROSEMIDE 20 MG/2 ML VIAL IV SCH (05:32)
[2021-08-02 08:47] VITALS: BP 144/72
[2021-08-02 10:05] VITALS: BP 144/72
== END 2021-08-02 11:11 | disposition home health service (06) | DRG 535 ==
LOC: ER 19:45 → EDBD 19:45 → TELE 07-22 01:16 → TELE-EAST 07-22 17:30
PROVIDERS: ADMIT Internal Medicine; ATTEND Internal Medicine
PROC: 30233N1 Transfusion of Nonautologous Red Blood Cells into Peripheral Vein, Percutaneous Approach (ICD-10-PCS; principal; 2021-07-28)
DX: S32.401A Unspecified fracture of right acetabulum, initial encounter for closed fracture (principal); U07.1 COVID-19; N18.6 End stage renal disease; J12.82 Pneumonia due to coronavirus disease 2019; N17.9 Acute kidney failure, unspecified; I13.2 Hypertensive heart and chronic kidney disease with heart failure and with stage 5 chronic kidney disease, or end stage renal disease; D63.1 Anemia in chronic kidney disease; I50.9 Heart failure, unspecified; E11.22 Type 2 diabetes mellitus with diabetic chronic kidney disease; N40.0 Benign prostatic hyperplasia without lower urinary tract symptoms; E11.40 Type 2 diabetes mellitus with diabetic neuropathy, unspecified; W18.39XA Other fall on same level, initial encounter; E87.5 Hyperkalemia; E11.51 Type 2 diabetes mellitus with diabetic peripheral angiopathy without gangrene; I25.10 Atherosclerotic heart disease of native coronary artery without angina pectoris; Z99.2 Dependence on renal dialysis; Z86.73 Personal history of transient ischemic attack (TIA), and cerebral infarction without residual deficits; Z91.81 History of falling; Z79.02 Long term (current) use of antithrombotics/antiplatelets; Z87.891 Personal history of nicotine dependence; Z90.79 Acquired absence of other genital organ(s); Z98.61 Coronary angioplasty status; Y93.89 Activity, other specified; Y92.89 Other specified places as the place of occurrence of the external cause; Y99.8 Other external cause status
CPT/HCPCS: 36415; 71045; 73502; 73700; 80048; 80053; 81001; 82270; 82962; 83735; 84100; 85007; 85025; 85027; 85379; 85610; 85730; 86141; 86850; 86900; 86901; 86920; 87081; 87426; 93005; 96365; 96372; C9113; G0378; J1815; J3490